=== PATIENT | female | born 1975 | race Caucasian/White ===

== ENCOUNTER 2020-09-26 16:22 | Emergency (ER) | payer OTHER, BC, SELFPAY ==
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
[2020-09-26 17:34] VITALS: BP 118/84; PULSE 68; RESP 16; TEMP 36.1; O2SAT 98
[2020-09-26] MEDS: diazePAM (*CRX) 5 MG TABLET PO (19:05)
[2020-09-26] MEDS: HYDROcodone/acetaminophen (*CRX) 5-325 MG TABLET 1 TAB PO (19:05)
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
[2020-09-26 20:21] VITALS: BP 136/72; PULSE 82; RESP 20; O2SAT 100
== END 2020-09-26 20:22 | disposition home or self-care (01) ==
PROVIDERS: Emergency Provider Emergency Medicine; PCP Family Medicine
DX: S16.1XXA Strain of muscle, fascia and tendon at neck level, initial encounter (principal); S29.012A Strain of muscle and tendon of back wall of thorax, initial encounter; S39.012A Strain of muscle, fascia and tendon of lower back, initial encounter; M43.06 Spondylolysis, lumbar region; M47.814 Spondylosis without myelopathy or radiculopathy, thoracic region; M47.816 Spondylosis without myelopathy or radiculopathy, lumbar region; M41.9 Scoliosis, unspecified; V49.40XA Driver injured in collision with unspecified motor vehicles in traffic accident, initial encounter
CPT/HCPCS: 72072; 72100; 72125; 99284; A9270; L0140

== ENCOUNTER 2021-03-15 07:02 | Outpatient (CLI) | payer BC, SELFPAY ==
[2021-03-15 07:35] LABS: Basophils Absolute Auto 0.1 K/mm3 (0.0-0.1); Basophils Percent Auto 1.3 % (0.2-1.2); Eosinophils Absolute Auto 0.2 K/mm3 (0-0.3); Eosinophils Percent Auto 4.1 % (0-4.4); Hematocrit 41.8 % (37.0-47.0); Hemoglobin 14.1 g/dL (12.0-15.0); Immature Granulocyte Absolute 0.01 K/mm3 (0.00-0.031); Immature Granulocyte Percent A 0.3 % (0-0.5); Lymphocytes Absolute Auto 1.35 K/mm3 (0.9-3.2); Lymphocytes Percent Auto 34.3 % (18.3-44.2); Mean Corpuscular HGB Conc 33.7 g/dl (32-36); Mean Corpuscular Volume 94.8 fl (80-100); Monocytes Absolute Auto 0.3 K/mm3 (0.1-0.6); Monocytes Percent Auto 7.9 % (2.6-8.5); Neutrophils Absolute Auto 2.1 K/mm3 (1.3-6.7); Neutrophils Percent Auto 52.1 % (45.5-73.1); Platelet Count Result 210 k/mm3 (150-375); Red Blood Count 4.41 M/mm3 (4.2-5.4); Red Cell Distribution Width 10.9 % (11.5-14.5); White Blood Count 3.9 K/mm3 (4.5-10.0)
[2021-03-15 08:00] LABS: Rheumatoid Factor < 8.6 IU/ML (<12)
[2021-03-15 08:03] LABS: Alanine Aminotransferase 18 U/L (4-35); Albumin Level 5.1 g/dL (3.5-5.1); Alkaline Phosphatase 37 U/L (38-126); Anion Gap 5 mmol/L (8-16); Aspartate Amino Transferase 27 U/L (14-36); Bilirubin,Total 0.9 mg/dL (0.2-1.3); Blood Urea Nitrogen 12 mg/dL (7-17); CRP < 0.5 mg/dL (<1.0); Calcium 9.6 mg/dL (8.4-10.2); Carbon Dioxide 32 mmol/L (22-30); Chloride 103 mmol/L (98-107); Cholesterol 207 mg/dL (0-200); Estimated Glomerular Filt Rate > 60; Glucose 94 mg/dL (65-110); HDL Direct 80 mg/dL; Potassium 4.7 mmol/L (3.4-5.0); Sodium 140 mmol/L (137-145); Triglycerides 71 mg/dL (<150)
[2021-03-15 08:11] LABS: LDL Cholesterol Direct 108 mg/dL
[2021-03-15 08:20] LABS: Erythrocyte Sedimentation Rate 13 mm/hr (0-20)
[2021-03-15 08:38] LABS: Vitamin D 25 Hydroxy 39.5 ng/mL
[2021-03-15 09:03] LABS: Folic Acid 10.9 ng/mL (2.76->20)
== END 2021-03-15 07:03 | disposition home or self-care (01) ==
PROVIDERS: PCP Family Medicine; Visit Provider Nurse Practitioner Family
DX: E55.9 Vitamin D deficiency, unspecified (principal); R53.83 Other fatigue; Z13.29 Encounter for screening for other suspected endocrine disorder; M25.50 Pain in unspecified joint; Z13.220 Encounter for screening for lipoid disorders
CPT/HCPCS: 36415; 80053; 80061; 82306; 82607; 82746; 84443; 85025; 85652; 86038; 86140; 86430

== ENCOUNTER 2021-04-24 08:15 | Outpatient (CLI) | payer BC, SELFPAY ==
[2021-04-24 08:33] LABS: Basophils Absolute Auto 0.1 K/mm3 (0.0-0.1); Basophils Percent Auto 1.2 % (0.2-1.2); Eosinophils Absolute Auto 0.3 K/mm3 (0-0.3); Eosinophils Percent Auto 5.9 % (0-4.4); Hematocrit 39.9 % (37.0-47.0); Hemoglobin 13.3 g/dL (12.0-15.0); Immature Granulocyte Absolute 0.01 K/mm3 (0.00-0.031); Immature Granulocyte Percent A 0.2 % (0-0.5); Lymphocytes Absolute Auto 1.54 K/mm3 (0.9-3.2); Lymphocytes Percent Auto 36.6 % (18.3-44.2); Mean Corpuscular HGB Conc 33.3 g/dl (32-36); Mean Corpuscular Hemoglobin 31.2 pg (26-34); Mean Corpuscular Volume 93.7 fl (80-100); Mean Platelet Volume 9.3 fl (7.4-10.4); Monocytes Absolute Auto 0.3 K/mm3 (0.1-0.6); Monocytes Percent Auto 6.9 % (2.6-8.5); Neutrophils Absolute Auto 2.1 K/mm3 (1.3-6.7); Neutrophils Percent Auto 49.2 % (45.5-73.1); Platelet Count Result 229 k/mm3 (150-375); Red Blood Count 4.26 M/mm3 (4.2-5.4); Red Cell Distribution Width 11.2 % (11.5-14.5); White Blood Count 4.2 K/mm3 (4.5-10.0)
== END 2021-04-24 08:16 | disposition home or self-care (01) ==
LOC: ANHLAB 08:16
PROVIDERS: PCP Family Medicine; Visit Provider Physician Assistant Medical
DX: D72.819 Decreased white blood cell count, unspecified (principal); R71.8 Other abnormality of red blood cells
CPT/HCPCS: 36415; 85025

== ENCOUNTER 2021-05-24 06:57 | Outpatient (CLI) | payer BC, SELFPAY ==
[2021-05-24 07:45] LABS: Basophils Percent Auto 0.9 % (0.2-1.2); Eosinophils Absolute Auto 0.2 K/mm3 (0-0.3); Eosinophils Percent Auto 3.9 % (0-4.4); Hematocrit 39.5 % (37.0-47.0); Hemoglobin 13.4 g/dL (12.0-15.0); Immature Granulocyte Absolute 0.01 K/mm3 (0.00-0.031); Immature Granulocyte Percent A 0.2 % (0-0.5); Lymphocytes Absolute Auto 1.73 K/mm3 (0.9-3.2); Lymphocytes Percent Auto 39.3 % (18.3-44.2); Mean Corpuscular HGB Conc 33.9 g/dl (32-36); Mean Corpuscular Hemoglobin 31.5 pg (26-34); Mean Corpuscular Volume 92.7 fl (80-100); Mean Platelet Volume 9.2 fl (7.4-10.4); Monocytes Absolute Auto 0.3 K/mm3 (0.1-0.6); Monocytes Percent Auto 6.6 % (2.6-8.5); Neutrophils Absolute Auto 2.2 K/mm3 (1.3-6.7); Neutrophils Percent Auto 49.1 % (45.5-73.1); Platelet Count Result 217 k/mm3 (150-375); Red Blood Count 4.26 M/mm3 (4.2-5.4); Red Cell Distribution Width 11.2 % (11.5-14.5); White Blood Count 4.4 K/mm3 (4.5-10.0)
== END 2021-05-24 06:58 | disposition home or self-care (01) ==
LOC: ANHLAB 07:00
PROVIDERS: PCP Family Medicine; Visit Provider Physician Assistant Medical
DX: D72.819 Decreased white blood cell count, unspecified (principal)
CPT/HCPCS: 36415; 85025

== ENCOUNTER → 2021-09-26 13:58 | Outpatient (CLI) | payer BC, SELFPAY ==
--- NOTE | ~2021-09-26 | XR_ITS ---
XR shoulder RT min 2V DATE: 09/26/2021 14:44 INDICATION: Lumps at the top of the shoulders. Bilateral hand pain TECHNIQUE: 4 views of right shoulder COMPARISON: None FINDINGS: There is mild spurring at the acromion clavicular joint. Normal alignment at the acromiocla vicular and glenohumeral joints. There is an old healed fracture of the midshaft of the right clavicle. No recent fracture or dislocat ion. No periosteal reaction or bone destruction or abnormal soft tissue calcification. IMPRESSION: Old healed fracture deformity of right clavicle Mild degenerative change at the right acromioclavicular joint Reviewed, dictated and finalized at location A.
--- NOTE | ~2021-09-26 | XR_ITS ---
EXAMINATION: XR hand LT min 3V INDICATION: Left hand pain TECHNIQUE: Three views of the left hand are obtained. COMPARISON: None available FINDINGS: There is no fracture, dislocation, or subluxation. The bones, soft tissues, and joint space s are normal. IMPRESSION: 1. No acute osseous abnormality. Reviewed, dictated and finalized at location F.
--- NOTE | ~2021-09-26 | XR_ITS ---
EXAMINATION: XR hand RT min 3V INDICATION: Right hand pain TECHNIQUE: Three views of the right hand are obtained. COMPARISON: None available FINDINGS: There is no fracture, dislocation, or subluxation. The bones, soft tissues, and joint space s are normal. IMPRESSION: 1. No acute osseous abnormality. Reviewed, dictated and finalized at location F.
--- NOTE | ~2021-09-26 | XR_ITS ---
XR shoulder LT min 2V DATE: 09/26/2021 14:44 INDICATION: Bump cyst at the top of the shoulders TECHNIQUE: 4 views COMPARISON: None FINDINGS: A bump at the top of the left shoulder is associated with the normal-appearing left acromio n clavicular joint. No fracture or dislocation, periosteal reaction or bone destruction or abnormal soft tissue calcifica tion is detected. IMPRESSION: No significant abnormality Reviewed, dictated and finalized at location A. IMPRESSION: No significant abnormality
== END ==
PROVIDERS: PCP Pediatrics Pediatric Rheumatology; Visit Provider Pediatrics Pediatric Rheumatology
DX: I73.00 Raynaud's syndrome without gangrene (principal); M19.011 Primary osteoarthritis, right shoulder; I65.9 Occlusion and stenosis of unspecified precerebral artery; M25.542 Pain in joints of left hand; M25.541 Pain in joints of right hand; M25.512 Pain in left shoulder
CPT/HCPCS: 73030; 73130

== ENCOUNTER 2021-12-09 01:29 | Day surgery (SDC) | payer BC, SELFPAY ==
[2021-11-19 13:01] VITALS: BMI 20.8
--- NOTE | 2021-12-09 07:29 | P.PNAN_ITS ---
Anes - Initial Pre Proc Eval Procedure: Operation Date: 12/09/21 10:00 Proposed Procedures p Colonoscopy - Mahad Christian MD Date/Time: 12/09/21 07:29 Surgeon: Mahad Christian MD Pre Op Diagnosis: melena Patient Data Age: 46 Gender: F Height: 1.68 m Weight: 58.5 kg Allergies Allergy/AdvReac Type Severity Reaction Status Date / Time niacin Allergy Unknown rash Verified 12/09/21 09:09 Home Medications Medication Instructions Recorded Confirmed Type linaclotide 72 mcg capsule 72 mcg PO DAILY PRN Constipation 11/19/21 11/19/21 History (Linzess) omeprazole 20 mg capsule,delayed 20 mg PO DAILY 11/19/21 11/19/21 History release Patient hx anesthesia problems: none Family hx anesthesia problems: none Results Review: All pre-operative results and documents have been reviewed as part of the pre- operative evaluation. [facility] Past Medical History Medical History (Updated 12/09/21 @ 07:30 by Francis Guy DO) Anxiety BMI 20.0-20.9, adult Chronic generalized abdominal pain Epigastric pain Flu-like symptoms GERD without esophagitis Influenza Non-recurrent acute suppurative otitis media of right ear without spontaneous rupture of tympanic membrane Other chronic pain Surgical History Surgical History (Updated 12/09/21 @ 07:30 by Francis Guy DO) History of partial hysterectomy Family History Family History Father Hypertension Family history of coronary artery disease Mother Diabetes mellitus Hypertension Hyperlipemia Obesity Sibling Diabetes mellitus Hypertension Social History Social History (Updated 11/12/21 @ 14:16 by Erica Blanco RN) Smoking packs per day: 1 Smoking cigarettes per day: 20.0 Years smoked: 30 Smoking pack-years: 30.00 Smoking status: Current every day smoker Tobacco type: cigarettes Second hand tobacco smoke exposure: Yes Alcohol intake: current Drinks per week: 3 Substance use: never Substance use type: does not use Living arrangements: other Additional occupation/education comments: [employer] [place] Gender identity (if verbalized by the patient): Female Spiritual care concerns: No Anes - Eval Final PreProcedure Day of Procedure 07/11/22 07:29 Patient weight: normal Heart: regular rate and rhythm Lungs: clear to auscultation Airway: Mallampati scale class II Neurological: alert and oriented Last oral intake: >/= 8 hours ASA classification: II Emergent: no Anesthetic plan: proceed Anesthesia type and monitoring: general GIVS and standard monitoring Results Review: All pre-operative results and documents have been reviewed as part of the pre- operative evaluation. Informed Consent: The patient's anesthetic plan and its attendant risks and benefits were discussed with the patient/family/POA. Questions were solicited and answers provided to the satisfaction of the patient/family/POA.
[2021-12-09 09:10] VITALS: BP 108/73; PULSE 83; RESP 17; TEMP 36.3; O2SAT 99
[2021-12-09] MEDS: LACTATED RINGERS 1,000 ML 150 ML IV CONT (09:20)
[2021-12-09 10:12] VITALS: BP 95/63; PULSE 67; RESP 18; O2SAT 100
[2021-12-09 10:22] VITALS: BP 108/73; PULSE 66; RESP 28; O2SAT 100
[2021-12-09 10:30] VITALS: BP 121/82; PULSE 65; RESP 20; O2SAT 100
--- NOTE | 2021-12-10 16:42 | P.HP_ITS ---
History of Present Illness History of Present Illness Consent: Risks, benefits, and alternatives have been discussed and questions answered. Patient agrees to proceed with procedure. Chief complaint: melena Narrative: Radha Hope is a 46 year old female who has seen bright red blood her stool a couple of occasions. Review of Systems Review of Systems: All systems reviewed & are unremarkable except as noted in HPI and below PMFSH Past Medical History Medical History Anxiety BMI 20.0-20.9, adult Chronic generalized abdominal pain Epigastric pain Flu-like symptoms GERD without esophagitis Influenza Non-recurrent acute suppurative otitis media of right ear without spontaneous rupture of tympanic membrane Other chronic pain Surgical History Surgical History History of partial hysterectomy Family History Family History Father Hypertension Family history of coronary artery disease Mother Diabetes mellitus Hypertension Hyperlipemia Obesity Sibling Diabetes mellitus Hypertension Social History Social History Smoking packs per day: 1 Smoking cigarettes per day: 20.0 Years smoked: 30 Smoking pack-years: 30.00 Smoking status: Current every day smoker Tobacco type: cigarettes Second hand tobacco smoke exposure: Yes Alcohol intake: current Drinks per week: 3 Substance use: never Substance use type: does not use Living arrangements: other Additional occupation/education comments: [employer] [facility] [place], [place] Gender identity (if verbalized by the patient): Female Spiritual care concerns: No Meds Home Medications and Allergies Home Medications Medication Instructions Recorded Confirmed Type linaclotide 72 mcg capsule 72 mcg PO DAILY PRN Constipation 11/19/21 11/19/21 History (Linzess) omeprazole 20 mg capsule,delayed 20 mg PO DAILY 11/19/21 11/19/21 History release Allergies Allergy/AdvReac Type Severity Reaction Status Date / Time niacin Allergy Unknown rash Verified 12/09/21 09:09 Exam Resp: Auscultation: clear to auscultation bilaterally Cardio: Rate: regular rate Rhythm: regular rhythm GI: GI Palp: Yes Soft to palpation and No Tenderness to palpation present (GI) Assessment and Plan Assessment and plan (1) Blood in stool: Code(s): K92.1 - Melena Status: Acute Assessment and Plan: Colonoscopy with possible biopsy or polypectomy or cautery or injection of substances.
== END 2021-12-09 10:35 | disposition home or self-care (01) ==
PROVIDERS: PCP Family Medicine; Visit Provider Internal Medicine Gastroenterology
PROC: 0DJD8ZZ Inspection of Lower Intestinal Tract, Via Natural or Artificial Opening Endoscopic (ICD-10-PCS; CPT 45378; principal; 2021-12-09 10:00)
DX: K92.1 Melena (principal); K64.8 Other hemorrhoids; K21.9 Gastro-esophageal reflux disease without esophagitis; F17.210 Nicotine dependence, cigarettes, uncomplicated
CPT/HCPCS: 45378; J2704; J7120

== ENCOUNTER 2023-09-17 13:52 | Emergency (ER) | payer BC, SELFPAY ==
[2023-09-17 14:03] VITALS: BP 144/92; PULSE 72; RESP 22; O2SAT 100
--- NOTE | 2023-09-17 14:04 | ED.GENADULT ---
HPI - General Adult General Chief complaint: Chest Pain Stated complaint: Chest Wall Pain Time Seen by Provider: 09/17/23 14:05 Source: patient, RN notes reviewed and old records reviewed Mode of arrival: ambulatory Limitations: no limitations History of Present Illness HPI narrative: 47-year-old female presents to the [facility] with complaints of ribs/abdominal/back pain. Patient also states that she has had some shortness of breath and discomfort when she takes a deep breath. Denies coughing, fevers. Patient reports symptoms started Thursday, 4 days ago started with some right lower to mid scapular, back pain. States that she thought it was from her heavy lifting at work. Patient states the pain is been getting worse and wrapping around to the right upper quadrant, epigastric area. Patient reports that she has chronic nausea. Has not had any vomiting. Denies fevers. Onset (ago): day(s) (4) Related Data Allergies Allergy/AdvReac Type Severity Reaction Status Date / Time niacin Allergy Unknown rash Verified 09/01/22 08:45 Review of Systems Review of Systems: All systems reviewed & are unremarkable except as noted in HPI and below Constitutional: Constitutional: Reports no additional constitutional complaints Eyes: Eyes: Reports no additional eye complaints ENT: Reports system reviewed and no additional complaints, except as documented Cardiovascular: Cardiovascular: Reports no additional cardiovascular complaints, Denies chest pain and Denies dyspnea Respiratory: Respiratory: Reports no additional respiratory complaints, Denies chest congestion, Denies cough and Denies dyspnea Gastrointestinal: Gastrointestinal: Reports as per HPI, Reports abdominal pain, Reports nausea and Denies vomiting Musculoskeletal: Musculoskeletal: Reports as per HPI Integumentary/Breasts: Skin/Breast: Reports system reviewed and no additional complaints, except as docu Neurologic: Reports system reviewed and no additional complaints, except as documented Psychiatric: Psychiatric: Reports no additional psychiatric complaints Allergic/Immunologic: Allergic/Immunologic: Reports no additional allergic/immunologic complaints [facility] Past Medical History Medical History Anxiety BMI 20.0-20.9, adult Chronic generalized abdominal pain Epigastric pain Flu-like symptoms GERD without esophagitis Influenza Non-recurrent acute suppurative otitis media of right ear without spontaneous rupture of tympanic membrane Other chronic pain Surgical History Surgical History History of partial hysterectomy Family History Family History Father Hypertension Family history of coronary artery disease Mother Diabetes mellitus Hypertension Hyperlipemia Obesity Sibling Diabetes mellitus Hypertension Social History Social History Smoking packs per day: 1 Smoking cigarettes per day: 20.0 Years smoked: 30 Smoking pack-years: 30.00 Smoking status: Current every day smoker Tobacco type: cigarettes Second hand tobacco smoke exposure: Yes Alcohol intake: current Drinks per week: 3 Substance use: never Substance use type: does not use Lack of Transportation: No Lack of Food: Never True Current Housing: I Have Housing Concerned About Future Housing: No Difficulty Paying Gas/Electric Bills: No Difficulty Paying for Meds: No Currently Unemployed: No Education: High School Diploma/GED Difficulty w/ Childcare or Family Care: No Living arrangements: with family Occupation/Education: occupation Additional occupation/education comments: [employer] Gender identity (if verbalized by the patient): Female Spiritual care concerns: No Comments At the time of my signatur
== END 2023-09-17 14:28 | disposition short-term general hospital (02) ==
LOC: EXPCOLL 13:54
PROVIDERS: Emergency Provider Nurse Practitioner; PCP Family Medicine
DX: R10.13 Epigastric pain (principal); R10.11 Right upper quadrant pain; R06.00 Dyspnea, unspecified; K21.9 Gastro-esophageal reflux disease without esophagitis; F17.210 Nicotine dependence, cigarettes, uncomplicated
CPT/HCPCS: 99212; G0463

== ENCOUNTER 2023-09-17 14:47 | Emergency (ER) | payer BC, SELFPAY ==
--- NOTE | ~2023-09-17 | US_ITS ---
EXAMINATION: US pelvic complete w TV DATE: 09/17/2023 18:58 INDICATION: Adnexal mass. TECHNIQUE: Multiple transabdominal and transvaginal sonographic images of the pelvis were obtained. COMPARISON: CT abdomen pelvis 09/17/23 FINDINGS: TRANSABDOMINAL ULTRASOUND: The uterus is absent. There is physiologic free fluid in the pelvis. TRANSVAGINAL ULTRASOUND: The right ovary is not visualized. In the left adnexa, there is a 7.3 x 3.6 x 3.7 cm mass with periph eral 2.6 cm cyst. The bulk of the mass is hypoechoic and shadowing with internal vascular flow. IMPRESSION: 1. 7.3 cm left adnexal mass suspicious for neoplasm. Consider pelvis MRI without and with contrast or surgical evaluation. Reviewed, dictated and finalized at location E. IMPRESSION: 1. 7.3 cm left adnexal mass suspicious for neoplasm. Consider pelvis MRI withou t and with contrast or surgical evaluation.
--- NOTE | ~2023-09-17 | CT_ITS ---
EXAMINATION: CT abdomen pelvis w con DATE: 09/17/2023 15:51 INDICATION: Right lateral chest pain. Right abdominal pain. TECHNIQUE: Computed tomography (CT) of the abdomen and pelvis was performed with 100 mL Omnipaque 350 intravenous contrast. Automated exposure control and iterative reconstruction technique were employe d. The dose-length product was 269.19 mGy-cm. COMPARISON: None. FINDINGS: The visualized portions of the lung bases demonstrate mild atelectasis. No pleural effusion . The heart size is normal. No pericardial effusion. The liver, gallbladder, spleen, pancreas, adrena l glands, and kidneys are normal. There are no dilated loops of bowel. The appendix is normal. There is an umbilical hernia containing fat. There are no pathologically enlarged lymph nodes. There is phy siologic fluid in the pelvis. There is a 6.0 x 4.0 cm mass in the left adnexa that predominantly rita ures soft tissue attenuation with 2.8 cm cystic component. There are chronic bilateral L5 pars defect s. There is 4 mm anterolisthesis of L5 on S1. There is severe lower lumbar spondylosis. IMPRESSION: 1. 6.0 cm mass in left adnexa. The differential diagnosis includes hemorrhagic cyst, endometrioma, pe ritoneal inclusion cyst, and neoplasm. Pelvis ultrasound is recommended. Reviewed, dictated and finalized at location E. IMPRESSION: 1. 6.0 cm mass in left adnexa. The differential diagnosis includes hemorrhagic cyst, endometrioma, peritoneal inclusion cyst, and neoplasm. Pelvis ultrasound is recommended.
[2023-09-17 14:50] VITALS: BP 165/91; PULSE 81; RESP 16; TEMP 36.7; O2SAT 100
--- NOTE | 2023-09-17 14:55 | ED.GENADULT ---
HPI - General Adult General Chief complaint: Abdominal Pain <Reece Be APRN - Last Filed: 10/07/23 08:47> Stated complaint: R LATERAL CHEST DISCOMFORT <Reece Be APRN - Last Filed: 10/07/23 08:47> Time Seen by Provider: 09/17/23 16:02 <Reece Be APRN - Last Filed: 10/07/23 08:47> Focused HPI: GENERAL: Well-appearing, well-nourished, and in no acute distress. HEAD: Normocephalic, atraumatic. CHEST: Clear to auscultation. No respiratory distress. HEART: Regular rate and rhythm. NEURO: Alert and oriented x3. ABD: RUQ pain. Negative Suarez sign. No CVA tenderness Patient screened in triage and initial orders placed. Additional care and disposition to be based upon diagnostic testing and treatment. 47-year-old female history of IBS presents to the emergency room from local urgent care for further evaluation right upper quadrant abdominal pain. Patient states pain began 5 days ago on her right flank, since moved around to her right upper quadrant. Patient states the pain is worse with inspiration and movement. Reports a longstanding history of nausea. States that she has tried Tylenol ibuprofen with no relief. Denies fevers. <Reece Be APRN - Last Filed: 10/07/23 08:47> History of Present Illness HPI narrative: as above Patient report that the pain get worse with certain movement, certain position and breathing. Better sitting up <Nan Cowan MD - Last Filed: 09/17/23 20:01> Related Data Allergies/adverse reactions: Allergies Allergy/AdvReac Type Severity Reaction Status Date / Time niacin Allergy Unknown rash Verified 09/17/23 15:59 <Reece Be APRN - Last Filed: 10/07/23 08:47> Review of Systems Review of Systems: All systems reviewed & are unremarkable except as noted in HPI and below <Nan Cowan MD - Last Filed: 09/17/23 20:01> PMFSH Past Medical History Medical History: Medical History Anxiety BMI 20.0-20.9, adult Chronic generalized abdominal pain Epigastric pain Flu-like symptoms GERD without esophagitis Influenza Non-recurrent acute suppurative otitis media of right ear without spontaneous rupture of tympanic membrane Other chronic pain <Reece Be APRN - Last Filed: 10/07/23 08:47> Surgical History Surgical History: Surgical History History of partial hysterectomy <Reece Be APRN - Last Filed: 10/07/23 08:47> Family History Family History: Family History Father Hypertension Family history of coronary artery disease Mother Diabetes mellitus Hypertension Hyperlipemia Obesity Sibling Diabetes mellitus Hypertension <Reece Be APRN - Last Filed: 10/07/23 08:47> Social History Social History: Social History Smoking packs per day: 1 Smoking cigarettes per day: 20.0 Years smoked: 30 Smoking pack-years: 30.00 Smoking status: Current every day smoker Tobacco type: cigarettes Second hand tobacco smoke exposure: Yes Alcohol intake: current Drinks per week: 3 Substance use: never Substance use type: does not use Lack of Transportation: No Lack of Food: Never True Current Housing: I Have Housing Concerned About Future Housing: No Difficulty Paying Gas/Electric Bills: No Difficulty Paying for Meds: No Currently Unemployed: No Education: High School Diploma/GED Difficulty w/ Childcare or Family Care: No Living arrangements: with family Occupation/Education: occupation Additional occupation/education comments: [employer] Gender identity (if verbalized by the patient): Female Spiritual care concerns: No <Reece Be APRN - Last Filed: 10/07/23 08:47> Exam Narrative: General appear
[2023-09-17 15:19] LABS: Basophils Percent Auto 0.9 % (0.2-1.2); Eosinophils Absolute Auto 0.1 K/mm3 (0-0.3); Eosinophils Percent Auto 2.5 % (0-4.4); Hematocrit 38.7 % (37.0-47.0); Hemoglobin 12.6 g/dL (12.0-15.0); Immature Granulocyte Absolute 0.01 K/mm3 (0.00-0.031); Immature Granulocyte Percent A 0.2 % (0-0.5); Lymphocytes Absolute Auto 2.15 K/mm3 (0.9-3.2); Lymphocytes Percent Auto 48.2 % (18.3-44.2); Mean Corpuscular HGB Conc 32.6 g/dl (32-36); Mean Corpuscular Hemoglobin 30.8 pg (26-34); Mean Corpuscular Volume 94.6 fl (80-100); Mean Platelet Volume 9.3 fl (7.4-10.4); Monocytes Absolute Auto 0.4 K/mm3 (0.1-0.6); Monocytes Percent Auto 7.8 % (2.6-8.5); Neutrophils Absolute Auto 1.8 K/mm3 (1.3-6.7); Neutrophils Percent Auto 40.4 % (45.5-73.1); Platelet Count Result 217 k/mm3 (150-375); Red Blood Count 4.09 M/mm3 (4.2-5.4); Red Cell Distribution Width 11.7 % (11.5-14.5); White Blood Count 4.5 K/mm3 (4.5-10.0)
[2023-09-17 15:20] LABS: Appearance Urine Clear (Clear); Bilirubin Urine Negative (Negative); Blood Urine Negative (Negative); Color Urine Yellow (Yellow); Glucose Urine UA Negative (Negative); Ketones Urine Negative (Negative); Leukocyte Esterase Ur Negative LEU/UL (Negative); Nitrate Urine Negative (Negative); Protein Urine Negative (Negative); Specific Grav Ur 1.008 (1.001-1.035); Urobilinogen Urine 0.2 mg/dL (<2.0)
[2023-09-17 15:28] LABS: Add Urine Microscopic? NO
[2023-09-17 15:34] LABS: Alanine Aminotransferase 19 U/L (6-35); Albumin Level 4.8 g/dL (3.5-5.1); Alkaline Phosphatase 62 U/L (38-126); Anion Gap 6 mmol/L (4-12); Aspartate Amino Transferase 32 U/L (14-36); Bilirubin,Total 0.5 mg/dL (0.2-1.3); Blood Urea Nitrogen 13 mg/dL (7-17); Calcium 9.7 mg/dL (8.4-10.2); Carbon Dioxide 29 mmol/L (22-30); Chloride 103 mmol/L (98-107); Estimated CRCL calculation 80 ml/min; Estimated Glomerular Filt Rate > 60; Glucose 86 mg/dL (65-110); Lipase 120 U/L (23-300); Potassium 4.3 mmol/L (3.4-5.0); Sodium 138 mmol/L (137-145)
[2023-09-17 16:03] VITALS: BP 139/90; PULSE 69; RESP 17; O2SAT 99
[2023-09-17] MEDS: SODIUM CHLORIDE 0.9% IV 1,000 ML 999 ML IV CONT (16:04)
[2023-09-17 17:41] VITALS: BP 148/94; PULSE 62; RESP 18; O2SAT 100
== END 2023-09-17 20:07 | disposition home or self-care (01) ==
PROVIDERS: Nurse Practitioner Family; Emergency Provider Emergency Medicine; PCP Family Medicine
DX: N94.89 Other specified conditions associated with female genital organs and menstrual cycle (principal); R10.11 Right upper quadrant pain; K58.9 Irritable bowel syndrome, unspecified; K21.9 Gastro-esophageal reflux disease without esophagitis; F17.210 Nicotine dependence, cigarettes, uncomplicated; Z90.711 Acquired absence of uterus with remaining cervical stump; Z85.41 Personal history of malignant neoplasm of cervix uteri
CPT/HCPCS: 36415; 74177; 76830; 76856; 80053; 81003; 81025; 83690; 85025; 96360; 99284; J7030; Q9967

== ENCOUNTER 2023-09-25 13:42 | Outpatient (CLI) | payer BC, SELFPAY ==
[2023-09-28 15:19] LABS: CA-125 11 U/mL (<35)
== END 2023-09-25 13:43 | disposition home or self-care (01) ==
LOC: ANHLAB 13:44
PROVIDERS: PCP Family Medicine; Visit Provider Obstetrics & Gynecology
DX: N94.89 Other specified conditions associated with female genital organs and menstrual cycle (principal)
CPT/HCPCS: 36415; 86304

== ENCOUNTER 2023-10-20 12:06 | Outpatient (CLI) | payer BC, SELFPAY ==
[2023-10-20 12:52] LABS: Basophils Percent Auto 0.8 % (0.2-1.2); Eosinophils Absolute Auto 0.2 K/mm3 (0-0.3); Eosinophils Percent Auto 2.9 % (0-4.4); Hematocrit 39.7 % (37.0-47.0); Immature Granulocyte Absolute 0.01 K/mm3 (0.00-0.031); Immature Granulocyte Percent A 0.2 % (0-0.5); Lymphocytes Absolute Auto 1.99 K/mm3 (0.9-3.2); Mean Corpuscular HGB Conc 32.7 g/dl (32-36); Mean Corpuscular Hemoglobin 31.3 pg (26-34); Mean Corpuscular Volume 95.4 fl (80-100); Mean Platelet Volume 9.1 fl (7.4-10.4); Monocytes Absolute Auto 0.2 K/mm3 (0.1-0.6); Monocytes Percent Auto 4.1 % (2.6-8.5); Neutrophils Absolute Auto 2.7 K/mm3 (1.3-6.7); Platelet Count Result 235 k/mm3 (150-375); Red Blood Count 4.16 M/mm3 (4.2-5.4); Red Cell Distribution Width 11.5 % (11.5-14.5); White Blood Count 5.1 K/mm3 (4.5-10.0)
[2023-10-20 13:03] LABS: Anion Gap 6 mmol/L (4-12); Blood Urea Nitrogen 11 mg/dL (7-17); Calcium 9.4 mg/dL (8.4-10.2); Carbon Dioxide 29 mmol/L (22-30); Chloride 104 mmol/L (98-107); Estimated Glomerular Filt Rate > 60; Glucose 89 mg/dL (65-110); Sodium 139 mmol/L (137-145)
== END 2023-10-20 12:07 | disposition home or self-care (01) ==
PROVIDERS: PCP Family Medicine
DX: Z01.818 Encounter for other preprocedural examination (principal)
CPT/HCPCS: 36415; 80048; 85025

== ENCOUNTER 2024-04-05 08:07 | Outpatient (CLI) | payer BC, SELFPAY ==
[2024-04-05 09:03] LABS: Hematocrit 39.9 % (37.0-47.0); Hemoglobin 13.1 g/dL (12.0-15.0); Mean Corpuscular HGB Conc 32.8 g/dl (32-36); Mean Corpuscular Volume 94.3 fl (80-100); Mean Platelet Volume 9.4 fl (7.4-10.4); Platelet Count Result 236 k/mm3 (150-375); Red Blood Count 4.23 M/mm3 (4.2-5.4); Red Cell Distribution Width 11.5 % (11.5-14.5); White Blood Count 3.7 K/mm3 (4.5-10.0)
[2024-04-05 09:16] LABS: Alanine Aminotransferase 19 U/L (6-35); Albumin Level 4.7 g/dL (3.5-5.1); Alkaline Phosphatase 51 U/L (38-126); Anion Gap 9 mmol/L (4-12); Aspartate Amino Transferase 29 U/L (14-36); Bilirubin,Total 0.7 mg/dL (0.2-1.3); Blood Urea Nitrogen 13 mg/dL (7-17); Calcium 9.6 mg/dL (8.4-10.2); Carbon Dioxide 31 mmol/L (22-30); Chloride 101 mmol/L (98-107); Creatine Kinase 73 U/L (30-135); Estimated Glomerular Filt Rate > 60; Glucose 85 mg/dL (65-110); Magnesium 1.8 mg/dL (1.6-2.3); Potassium 4.3 mmol/L (3.4-5.0); Sodium 141 mmol/L (137-145)
[2024-04-05 09:18] LABS: Rheumatoid Factor < 12.0 IU/ML (<12)
[2024-04-05 09:25] LABS: Iron 142 ug/dL (37-170)
[2024-04-05 09:34] LABS: Percent Iron Saturation 40 % (20-50)
[2024-04-05 09:54] LABS: Vitamin D 25 Hydroxy 32.9 ng/mL
[2024-04-05 10:06] LABS: Erythrocyte Sedimentation Rate 21 mm/hr (0-20)
== END 2024-04-05 08:08 | disposition home or self-care (01) ==
LOC: ANHLAB 08:08
PROVIDERS: PCP Family Medicine; Visit Provider Nurse Practitioner Family
DX: M79.7 Fibromyalgia (principal); M25.50 Pain in unspecified joint; R53.83 Other fatigue; E55.9 Vitamin D deficiency, unspecified; R25.2 Cramp and spasm
CPT/HCPCS: 36415; 80053; 82306; 82550; 83540; 83550; 83735; 84443; 85027; 85652; 86038; 86039; 86430

== ENCOUNTER 2024-05-06 14:40 | Emergency (ER) | payer BC, SELFPAY ==
[2024-05-06 14:48] VITALS: BP 141/84; PULSE 71; RESP 19; TEMP 36.9; O2SAT 100
--- NOTE | 2024-05-06 15:44 | ED.URI ---
HPI - URI/Sore Throat General Chief Complaint: Upper Respiratory Infection Stated Complaint: Cough Time Seen by Provider: 05/06/24 15:46 Source: patient, RN notes reviewed and old records reviewed Mode of arrival: ambulatory Limitations: no limitations History of Present Illness HPI Narrative: Patient who works in a school setting, multiple sick contacts as result, presents with complaints of sore throat and productive cough. She reports that symptoms have been present for about 1 week, have worsened significantly over the past couple of days. She does not believe that she has run any fevers, she does report that she has been more tired than normal. She has been making [id number]-gnurigg medication for her symptoms with moderate relief. She reports throat pain is made worse with swallowing and coughing. She is not in any distress Related Data Allergies Allergy/AdvReac Type Severity Reaction Status Date / Time niacin Allergy Unknown rash Verified 05/06/24 15:15 Review of Systems Review of Systems: All systems reviewed & are unremarkable except as noted in HPI and below Constitutional: Constitutional: Reports no additional constitutional complaints and Reports lethargy ENT: Reports system reviewed and no additional complaints, except as documented and Reports sore throat Cardiovascular: Cardiovascular: Reports no additional cardiovascular complaints Respiratory: Respiratory: Reports no additional respiratory complaints, Reports chest congestion, Reports cough and Reports excessive phlegm production Gastrointestinal: Gastrointestinal: Reports no additional gastrointestinal complaints PMFSH Past Medical History Medical History Anxiety BMI 20.0-20.9, adult Chronic generalized abdominal pain Epigastric pain Flu-like symptoms GERD without esophagitis Influenza Non-recurrent acute suppurative otitis media of right ear without spontaneous rupture of tympanic membrane Other chronic pain Surgical History Surgical History History of partial hysterectomy Family History Family History Father Hypertension Family history of coronary artery disease Mother Diabetes mellitus Hypertension Hyperlipemia Obesity Sibling Diabetes mellitus Hypertension Social History Social History Smoking packs per day: 1 Smoking cigarettes per day: 20.0 Years smoked: 30 Smoking pack-years: 30.00 Smoking status: Current every day smoker Tobacco type: cigarettes Second hand tobacco smoke exposure: Yes Alcohol intake: current Drinks per week: 3 Substance use: never Substance use type: does not use Do You Feel Safe in your Home?: Yes Lack of Transportation: No Lack of Food: Never True Current Housing: I Have Housing Concerned About Future Housing: No Difficulty Paying Gas/Electric Bills: No Difficulty Paying for Meds: No Currently Unemployed: No Education: High School Diploma/GED Difficulty w/ Childcare or Family Care: No Living arrangements: with family Occupation/Education: occupation Additional occupation/education comments: [employer] Gender identity (if verbalized by the patient): Female Spiritual care concerns: No Comments At the time of my signature, I reviewed and agree with the nursing past medical, surgical, social, and family history. There is no relevant family history pertinent to the patient complaint. Exam Const: General: cooperative, no acute distress, alert and awake Orientation/consciousness: oriented to person, oriented to place and oriented to time HENMT: Head: normal to inspection Ears: TM's normal bilaterally Mouth: Yes moist mucous membranes Throat: posterior oropharynx abnormal erythema Resp: Effort & Inspection: normal respiratory effort and able to speak in complete sentences Auscultation: clear to auscultation bilaterally, no crackles, no rales, no rhonchi and no wheezes Cardio: Palpation: normal PMI Rate: regular rate Rhythm: regular rhythm Heart sounds: S1 normal heart sound present and S2 normal heart sound present Neuro: General: oriented to person, oriented to place and oriented to time Cranial nerves: Yes CN's II-XII intact bilaterally Psych: Appearance: grossly normal Thought process: Normal thought process present Insight: Good insight present (Psych) Judgement: Good judgement present (Psych) Course Course Level of Care: Express Care Visit Vital Signs Vital signs: Vital Signs Temperature 98.5 F 05/06/24 14:48 Pulse Rate 71 05/06/24 14:48 Respiratory Rate 19 05/06/24 14:48 Blood Pressure 141/84 H 05/06/24 14:48 Pulse Oximetry 100 05/06/24 14:48 Oxygen Delivery Room Air 05/06/24 14:48 Temperature 98.5 F 05/06/24 14:48 Pulse Rate 71 05/06/24 14:48 Respiratory Rate 19 12/06/24 14:48 Blood Pressure 141/84 H 05/06/24 14:48 Pulse Oximetry 100 05/06/24 14:48 Oxygen Delivery Room Air 05/06/24 14:48 Reviewed MDM - URI/Sore Throat MDM Narrative Medical decision making narrative: Negative strep, reassuring physical exam. Given symptoms in high rate of exposure to community-acquired pneumonia, will treat as same. Patient advised follow-up primary care provider. Emergency department for new or worse symptoms. Discharge instructions reviewed with patient, as well as provided in writing per nursing staff. The instructions also include specific and strict return/GO TO THE ER as well as f/u information. All questions have been answered, and the patient deny any further questions with discharge and discharge plan. Some parts of this dictation were generated by voice recognition software and may contain typographical and/or grammatical inaccuracies. Differential Diagnosis Differential diagnosis: Likely upper respiratory infection, sinusitis, viral infection and bronchitis Medical Records Attestation: I reviewed the patient's medical records. Lab Data Attestation: I reviewed the patient's lab results. Discharge Plan Discharge Clinical Impression: Pneumonia Qualifiers: Pneumonia type: due to unspecified organism Laterality: unspecified laterality Lung location: unspecified part of lung Qualified Code(s): J18.9 - Pneumonia, unspecified organism Patient Disposition: Home, Self-Care Condition: Stable Instructions: Antibiotic Form, Pneumonia (ED) Additional Instructions: Take medicine as prescribed. Follow with primary care provider. Emergency department for new or worse symptoms Patient Language: [place] Citizen Prescriptions: New azithromycin 250 mg tablet See Rx Instructions .ROUTE .COMPLEX Qty: 6 0RF Rx Instructions: For 250 mg dose pack: take 500 mg today (day 1), then 250 mg for 4 days (days 2-5) prednisone 50 mg tablet 50 mg PO DAILY Qty: 5 0RF No Action meloxicam 15 mg tablet 15 mg PO DAILY Qty: 30 0RF Linzess 72 mcg capsule 72 mcg PO DAILY PRN (Reason: Constipation) Qty: 90 3RF Follow-up/Referrals: Marco Hernandez MD [Primary Care Provider] - 2 Weeks Time of Disposition: 15:56
[2024-05-06 16:25] LABS: EDSTREPNEGPOS1 Negative (Negative)
== END 2024-05-06 16:00 | disposition home or self-care (01) ==
PROVIDERS: Emergency Provider Nurse Practitioner Family; PCP Family Medicine
DX: J18.9 Pneumonia, unspecified organism (principal); F17.210 Nicotine dependence, cigarettes, uncomplicated; K21.9 Gastro-esophageal reflux disease without esophagitis; Z90.711 Acquired absence of uterus with remaining cervical stump
CPT/HCPCS: 87081; 87880; 99213; G0463

== ENCOUNTER 2025-02-26 08:18 | Emergency (ER) | payer BC, SELFPAY ==
[2025-02-26 08:24] VITALS: BP 115/81; PULSE 81; RESP 16; TEMP 36.6; O2SAT 99
--- NOTE | 2025-02-26 08:29 | ED_ITS ---
HPI - Skin/Abscess/Foreign Bdy General Chief complaint: Skin/Abscess/Foreign Body Stated complaint: Rash Time Seen by Provider: 02/26/25 08:30 Source: patient, RN notes reviewed and old records reviewed Mode of arrival: ambulatory Limitations: no limitations History of Present Illness HPI narrative: 49 year old female who presents to [facility] care with complaints of having minimally raised rash areas to neck chest and abdomen which started yesterday and is itchy and she reports that she has a headache. Patient reports that she was stung X2 2 weeks ago by wasps on her leg and right hip area with some continued redness of areas which are also still itchy. Patient reports that she has been dealing with some autoimmune issues and wonders if it could be from food allergies. Patient denies any use of any new skin products, food, medications or any new laundry products. 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 complaint: rash Onset (ago): day(s) (since yesterday) Location: neck and chest Severity: mild Quality: pruritic Treatments prior to arrival: other (Benadryl ointment and Benadryl orally) Related Data Home Medications ?Medication ?Instructions ?Recorded ?Confirmed ?Last Taken ?Type linaclotide 72 mcg capsule 72 mcg PO DAILY 02/26/25 U nknown History (Opal) Allergies Allergy/AdvReac Type Severity Reaction Status Date / Time niacin Allergy Unknown rash Verified 02/26/25 08:34 Review of Systems Review of Systems: CONSTITUTIONAL: Denies fever, chills, or sweats. CARDIOVASCULAR: Denies chest pain, palpitations, or edema. RESPIRATORY: Denies cough or dyspnea. SKIN: Reports fine red rash noted on neck, chest and abdomen which started yesterday also has 2 areas on lower extremities where she was stung by wasps 2 weeks ago with some surrounding redness no drainage MUSCULOSKELETAL: Denies joint pain or myalgia. NEUROLOGIC: Reports headache, no numbness, or weakness. All systems reviewed & are unremarkable except as noted in HPI and below PMFSH Past Medical History Medical History (Updated 02/26/25 @ 09:01 by Samira Nicole NP) Constipation Cervical cancer Hormone replacement therapy Anxiety BMI 20.0-20.9, adult Chronic generalized abdominal pain Epigastric pain Flu-like symptoms GERD without esophagitis Influenza Non-recurrent acute suppurative otitis media of right ear without spontaneous rupture of tympanic membrane Other chronic pain Surgical History Surgical History History of repair of anterior cruciate ligament of left knee History of partial hysterectomy Family History Family History Father Hypertension Family history of coronary artery disease Mother Diabetes mellitus Hypertension Hyperlipemia Obesity Sibling Diabetes mellitus Hypertension Social History Social History Smoking packs per day: 1 Smoking cigarettes per day: 20.0 Years smoked: 30 Smoking pack-years: 30.00 Smoking status: Current every day smoker Tobacco type: cigarettes Second hand tobacco smoke exposure: Yes Alcohol intake: current Drinks per week: 3 Substance use: never Substance use type: does not use Do You Feel Safe in your Home?: Yes Lack of Transportation: No Lack of Food: Never True Current Housing: I Have Housing Concerned About Future Housing: No Difficulty Paying Gas/Electric Bills: No Difficulty Paying for Meds: No Currently Unemployed: No Education: High School Diploma/GED Difficulty w/ Childcare or Family Care: No Living arrangements: with family Occupation/Education: occupation Additional occupation/education comments: [employer] Gender identity (if verbalized by the patient): Female Spiritual care concerns: No Comments At time of signature, agree with nursing past medical, surgical, social and family history. There is no relevant family history pertinent to the presenting complaint Exam Narrative: GENERAL: Well-appearing, well-nourished, and in no acute distress. HEAD: Normocephalic, atraumatic. EYES: PERRLA, conjunctivae clear, and EOMI. ENT: Mucous membranes moist. Oropharynx without edema, slightly erythema no lesions. NECK: Supple. No lymphadenopathy CHEST: Clear to auscultation. No respiratory distress.SAO2 99% on room air HEART: Regular rate and rhythm. SKIN: Warm, dry.?fine patches of small raised rash noted on neck chest and also abdomen since yesterday. also wasp stings on bilateral upper legs from 2 weeks ago with some surrounding redness with itching also no drainage NEURO:? Alert and oriented x3. PSYCH: Normal mood and affect, anxious Course Course Emergency Course: Patient is aware of diagnosis, understands and agrees to treatment plan.? Anticipatory guidance given.? Patient agrees to follow-up as directed and is aware of reasons to seek care at the emergency department. Portions of this record may have been created with voice recognition software Level of Care: Express Care Visit Vital Signs Vital signs: Vital Signs Temperature 36.6 C 02/26/25 08:24 Pulse Rate 81 02/26/25 08:24 Respiratory Rate 16 02/26/25 08:24 Blood Pressure 115/81 02/26/25 08:24 Pulse Oximetry 99 02/26/25 08:24 Oxygen Delivery Room Air 02/26/25 08:24 Temperature 36.6 C 02/26/25 08:24 Pulse Rate 81 02/26/25 08:24 Respiratory Rate 16 02/26/25 08:24 Blood Pressure 115/81 02/26/25 08:24 Pulse Oximetry 99 02/26/25 08:24 Oxygen Delivery Room Air 02/26/25 08:24 Reviewed MDM - Skin/Abscess/Foreign Bdy MDM Narrative Medical decision making narrative: Does not appear at this time to be erythema multiforme, bullous, SJS, TEN; no evidence at this time to suggest RMSF, endocarditis or Lyme disease; patient looks well, nontoxic and is tolerating oral intake; no neurologic signs or symptoms; no headache, photophobia or neck pain; afebrile; appropriate for initial outpatient treatment; discussed the importance of follow-up, patient agrees; question, viral exanthema, contact dermatitis, allergic dermatitis, ecz donavan, urticaria. No soft palate or uvula edema, no tongue, lip edema or other mucosal involvement, no respiratory compromise, no stridor, no wheezing, no wheezing, no history of syncope, no hypotension, no nausea, vomiting, or diarrhea.? Instructed patient to go to nearest ER immediately for any worsening symptoms including but not limited to: fever, spreading rash, pain, sore throat, headache, dizziness, chest pain, trouble breathing, or any symptoms concerning to the patient. Differential Diagnosis Differential diagnosis: Likely urticaria, eczema, contact dermatitis and other (pruritic rash) Medical Records Attestation: I reviewed the patient's medical records. Lab Data Attestation: I reviewed the patient's lab results. Lab results narrative: strep test negative, culture sent Labs: Lab Results 02/26/25 Range/Units 08:53 POC Grp A Strep Screen Negative (Negative) reviewed Critical Care Time Critical Care Time Critical Care Time: No Discharge Plan Discharge Clinical Impression: Contact dermatitis Qualifiers: Contact dermatitis type: unspecified Contact dermatitis trigger: unspecified trigger Qualified Code(s): L25.9 - Unspecified contact dermatitis, unspecified cause Patient Disposition: Home Condition: Stable Instructions: Prednisone (By mouth), Contact Dermatitis (ED) Additional Instructions: Apply Benadryl ointment to rash per package direction watch for any increasing infection--redness, swelling, drainage Tylenol or ibuprofen for any fever pain per package directions follow up with PCP in 7-10 days for a wound check recheck if develop fever, chills, increasing symptom Go to the ER if your symptoms become worse of if ANY new symptoms develop Pepcid 20 mg daily for 10 days Zyrtec daily for 10 days Prednisone taper take as prescribed with food complete all doses If your symptoms persist, change or worsen significantly before you can contact your personal physician then please, without delay, go to the emergency department for further evaluation. Follow-up with PCP in 7-10 days or sooner if needed Your strep test today was negative. A throat culture will be sent to the laboratory for further testing. IF the test is positive, you will receive a phone call within 48 hours and an appropriate antibiotic will be initiated at that time. Patient Language: [place] Prescriptions: New prednisone 10 mg tablet 10 mg PO DIRECTED Qty: 21 0RF Rx Instructions: see taper instructions 6 tabs day 1, 5 tabs day 2, 4 tabs day 3, 3 tabs day 4, 2 tabs day 5, 1 tab day 6 recommend taking with food famotidine [Pepcid] 20 mg tablet 20 mg PO DAILY Qty: 10 0RF No Action Linzess 72 mcg capsule 72 mcg PO DAILY Follow-up/Referrals: Marco Hernandez MD [Primary Care Provider, [facility]] Time of Disposition: 09:03 Quality [place] Coma Scale Eyes: Open Verbal: Oriented and Alert Motor: Follows Commands [place] Coma Total Score: 15
[2025-02-26 08:54] LABS: EDSTREPNEGPOS1 Negative (Negative)
== END 2025-02-26 09:20 | disposition home or self-care (01) ==
PROVIDERS: Emergency Provider Registered Nurse; PCP Family Medicine
DX: L25.9 Unspecified contact dermatitis, unspecified cause (principal); F17.210 Nicotine dependence, cigarettes, uncomplicated; K21.9 Gastro-esophageal reflux disease without esophagitis; Z85.41 Personal history of malignant neoplasm of cervix uteri
CPT/HCPCS: 87081; 87880; 99213; G0463